=== PATIENT | female | born 1990 | race Caucasian/White ===

== ENCOUNTER 2016-04-17 23:52 | Emergency (ER) | payer SELFPAY ==
[~2016-04-17] VITALS: Ht 157.5 cm; Wt 47.7 kg
[2016-04-17 23:55] VITALS: BP 148/93; PULSE 156; RESP 26; O2SAT 90
--- NOTE | 2016-04-18 00:08 | ED.REPORT ---
HPI-Chest Pain Under 40 Date of Service Apr 18, 2016 ED Provider: Dr. Tello Roach MD A 25 year old female presents to the ED complaining of chest pain that began earlier this evening. Associated symptoms include nausea, vomiting and increased anxiety. Patient denies any previous cardiac history or any recent illness. Nursing Notes Stated Complaint: CP VOMITING Chief Complaint: Chest Pain-Non Cardiac Nature Nursing Notes Reviewed: Yes Allergies: Uncoded Allergies: PENICILLIN (Allergy, Severe, Anaphylaxis, 04/17/16) General Time Seen by MD: 00:07 Chief Complaint Chest pain Hx Obtained From: Patient Arrived By: Walk-in Sudden in Onset?: No Onset Occurred: 1 - 4 hours ago Symptom Duration: Since onset Location: : Chest left: Chest right Quality: Painful Radiation: : Does not radiate Migration/Movement: Reports: None Severity: Current: Mild Severity: Maximum: Mild Associated with: Reports: Vomiting Pertinent Negative: Pt denies other symptoms Recent Healthcare: No recent doctor visit, No recent hospitalization Risk Factors )( CAD Risk Stratification Risk factors reviewed )( PE Risk Stratification Risk factors reviewed Past Medical History Past Medical History None reported. Past Surgical History None reported. Smoking History Unknown if Ever Smoker Social History Other Social History: Good social support, Local resident Ambulatory Status Independent Review of Systems Constitutional: Denies: Chills, Fever Respiratory: Denies: Shortness of breath Cardiovascular: Reports: Chest pain GI: Reports: Nausea, Vomiting, Denies: Abdominal pain Neurologic: Denies: Change LOC Complete sys rev & neg: except as marked. Physical Exam Initial Vital Signs Vital Signs (First) Date Time Temp Pulse Resp B/P Pulse Ox O2 Delivery O2 Flow Rate FiO2 04/17/16 23:55 37.0 156 26 148/93 90 Room Air Initial VS: Reviewed Head / Eyes: Atraumatic, Normocephalic, PERRL Abdomen / GI: Soft, Non-tender, No guarding, No rebound, No distention Extremities: Vascular intact, Neuro intact, No swelling, No tenderness Skin: Warm, Dry, No cyanosis Neurologic: Alert, Oriented, Nonfocal Psychiatric: Mood/affect normal, Behavior normal, Normal thought content General/Constitutional: Awake, Alert, No acute distress Respiratory / Chest: Atraumatic, Breath sounds NL, Breath sounds = bilat Cardiovascular: Regular rhythm, Heart sounds NL Heart Rate / Rhythm: Positive: Tachycardia Interpretation & Diagnostics Lab Results Interpretation Result Diagram: 04/18/16 0030 04/18/16 0030 Test 04/18/16 00:20 04/18/16 00:30 04/18/16 02:45 Hold Urine Received (Received) White Blood Count 7.7th/mm3 (3.8-10.1) Red Blood Count 4.52mil/mm3 (3.90-5.20) Hemoglobin 15.2g/dL (12.0-15.6) Hematocrit 43.0% (35.0-46.0) Mean Corpuscular Volume 95.1fL (81-100) Mean Corpuscular Hemoglobin 33.6pg (27.0-35.0) Mean Corpuscular Hemoglobin Concent 35.3% (32.0-37.0) Red Cell Distribution Width 12.0% (12.3-15.4) Platelet Count 301bil/L (150-400) Neutrophils (%) (Auto) 51.4% (40-74) Lymphocytes (%) (Auto) 38.2% (14-46) Monocytes (%) (Auto) 9.3% (4-12) Eosinophils (%) (Auto) 0.6% (0-5) Basophils (%) (Auto) 0.4% (0-3) D-Dimer < 0.5mg/L (<0.50) Sodium Level 141mEq/L (134-144) Potassium Level 3.8mEq/L (3.5-5.2) Chloride Level 104mEq/L (97-108) Carbon Dioxide Level 15mmol/L (18-29) Blood Urea Nitrogen 14mg/dL (6-20) Creatinine 0.64mg/dL (0.57-1.00) Estimat Glomerular Filtration Rate 165mL/min (>59) Glucose Level 93mg/dL (60-99) Calcium Level 9.5mg/dL (8.5-10.1) Magnesium Level 2.0mg/dL (1.6-2.6) Total Bilirubin 0.2mg/dL (0.0-1.2) Aspartate Amino Transf (AST/SGOT) 19U/L (0-50) Alanine Aminotransferase (ALT/SGPT) 16U/L (0-32) Alkaline Phosphatase 71U/L (25-150) Total Protein 8.0g/dL (6.4-8.4) Albumin 4.8g/dL (3.4-5.0) HCG Beta Subunit 0.500mIU/mL Troponin T 0.010ug/L (0.0-0.011) Pulse Oximetry Interpretation Pulse Oximetry: Pulse Ox normal ECG Interpretation ECG Interpretation: Sinus tachycardia Rate 138 Prolonged QT interval Time: 00:11 Interpreted by: ED physician ECG Interpretation: Sinus Tachycardia Rate 100 Time: 02:32 Interpreted by: ED physician Repeat ECG: Repeat ECG unchanged Rhythm Strip Interpretation : Time: 01:18 Rhythm Strip Interpretation: Interpreted by me, Sinus tachycardia X-Ray Chest Interpretation Chest Xray Interpretation: IMPRESSION: No acute abnormalities Interpretation / Wet Read by: Wet read ED physician CT Chest Interpretation IMPRESSION: Normal CT angiogram of the chest Study type: CT pulm angiogram Interpretation / Wet Read by: Interpret - Radiologist (mi ) Re-Eval/Medical Decision Med Decision/Clinical Course 25-year-old female presents with sudden onset pleuritic chest pain. Associated signs include significant tachycardia. She has pulmonary emboli risk factors. She was of moderate probability. I could not rule her out with a d-dimer alone. Negative CT and showed negative d-dimer combine makes pulmonary emboli highly unlikely. NC was ruled out with serial troponins. She was treated with antiemetics and anti-fatty medicines and she looked and felt better. She is discharged home with her significant other and family members. Re-Evaluation/Progress #1: Time of Eval: 01:37 Patient Status: Condition improved Re-Evaluation/Progress Note: Patient is rechecked. She is resting comfortably. She is informed of her lab results, EKG results, X-ray results. Re-Evaluation/Progress #2: Time of Eval: 02:24 Patient Status: Condition improved Re-Evaluation/Progress Note: Patient is rechecked. She is informed of her CT results and diagnosis. All questions are addressed. She understands and agrees with the treatment plan. Counseled Regarding: Diagnosis, Lab results, Need for follow-up, When/why to return to ED Discharge & Departure Primary Impression: Chest pain Chest pain type: unspecified Qualified Code: R07.9 - Chest pain, unspecified Additional Impression: Vomiting Vomiting type: unspecified Vomiting Intractability: unspecified Nausea presence: unspecified Qualified Code: R11.10 - Vomiting, unspecified Disposition: Home Discharge Condition All VS Reviewed: Yes Condition: Stable Additional Instructions: Thank you for trusting us with your care this evening. The cause of your symptoms is uncertain but your results are reassuring that your symptoms are not likely due to blood clot or heart attack. Please take 1 Zofran every 8 hours as needed for nausea. Make sure to drink plenty of fluids for the next few days. Schedule a follow up appointment with your primary care provider in the next 2-3 days for a recheck. Please return to the emergency department for any new or worsening symptoms. Referrals: [facility] Scribe Attestation Portions of this note were transcribed by Sonali Goodman. I, Dr. Roach personally performed the history, physical exam and medical decision-making; I reviewed and confirmed the accuracy of the information in the transcribed note. Signed by: Anastacia Faria, 04/18/16 0300. Tello Roach DO Apr 18, 2016 00:07 SONALI GOODMAN Apr 18, 2016 01:21
[2016-04-18] MEDS ORDERED: 0.9% Sodium Chloride 1,000 ML IV SCH (00:35)
[2016-04-18] MEDS ORDERED: Ondansetron 2 mg/mL 2 mL Inj IVPUSH PRN (00:35)
[2016-04-18 00:43] LABS: BASOPHILS % (AUTO) 0.4 % (0-3); EOSINOPHILS % (AUTO) 0.6 % (0-5); MONOCYTES % (AUTO) 9.3 % (4-12); Mean Corpuscular Hemoglobin 33.6 pg (27.0-35.0); Mean Corpuscular Volume 95.1 fL (81-100); NEUTROPHILS % (AUTO) 51.4 % (40-74); Platelet Count 301 bil/L (150-400)
[2016-04-18 01:15] LABS: TROPONIN T 0.01 ug/L (0.0-0.011)
[2016-04-18] MEDS ORDERED: _Ondansetron ODT 4 mg Tablet PO PRN (02:25)
[2016-04-18 04:07] VITALS: BP 116/74; PULSE 104; RESP 16; O2SAT 98
[2016-04-18 04:08] VITALS: BP 116/74; PULSE 104; RESP 16; O2SAT 98
--- NOTE | 2016-04-18 09:18 | DRSVH ---
PROCEDURE: X-RAY CHEST ONE VIEW, PORTABLE ([id number]) INDICATIONS: CHEST PAIN TECHNIQUE: One view of the chest was acquired. COMPARISON: None. FINDINGS: Surgical changes and devices: None. Lungs and pleura: No pleural effusions or pneumothorax. Lungs are clear. Mediastinum: Mediastinal contours appear normal. Heart size is normal. Bones and chest wall: No suspicious bony lesions. Overlying soft tissues appear unremarkable. IMPRESSION: No acute cardiopulmonary disease. Dictated by: Karan Stanley [facility] Interpreted: Reshma Aden MD on 04/18/2016 at 9:17 Transcribed by: TIMA on 04/18/2016 at 9:18 Approved by: Reshma Aden MD, PhD on 04/18/2016 at 10:53
--- NOTE | 2016-04-18 10:31 | DRSVH ---
PROCEDURE: CT ANGIO CHEST PULMONARY EMBOLISM ([id number]) INDICATIONS: chest pain, shortness of breath, tachycardia TECHNIQUE: After the administration of intravenous contrast, 2 mm thick sections acquired from the pulmonary api cisco to the posterior costophrenic angles. 3-dimensional maximum intensity projection (MIP) coronal a nd sagittal reformats were then acquired through the thorax. For radiation dose reduction, the follo wing was used: automated exposure control, adjustment of mA and/or kV according to patient size. COMPARISON: None. FINDINGS: Image quality: Excellent. Pulmonary arteries: Pulmonary arteries are normal in size, and demonstrate no intraluminal filling d efects to suggest central pulmonary embolism. Lungs and pleura: There is a 3 mm pulmonary nodule in the right middle lobe (series 5 image 34). A c ouple of nodules are seen in the right lower lobe measuring 4 mm 3 mm, respectively (series 5 image 3 3 and 48) Lungs are otherwise clear. No pleural effusions or pneumothorax. Central and peripheral a irways are patent. Mediastinum: Heart size is normal, without pericardial effusion. No mediastinal or hilar adenopathy . Thoracic aorta is normal in caliber and enhancement. Esophagus is normal in caliber, without hiat al hernia. Bones and chest wall: No suspicious bony lesions. Ribs and thoracic spine appear intact throughout. Thyroid gland is normal. No axillary or supraclavicular adenopathy. Abdomen: Visualized upper abdominal solid organs appear normal in the early arterial phase of enhanc ement. IMPRESSION: 1. No evidence for placental pulmo embolism. 2. Small right nodules. Recommend followup (see below for recommendation). Note: Please note small nodules in right lung not mentioned in the preliminary report. Fleischner Society criteria for SOLID lung nodule followup. Nodule size (mm)Low-risk patientHigh-risk [id number] follow-up neededFollow-up at 12 mo; if no bustos e, no further follow-up>[id number] CT at 12 mo; if no change, no further follow-up needed.Initial f ollow-up CT at 6-12 mo, then 18-24 mo if no change. >6-8Initial follow-up CT at 6-12 mo, then 18-24 mo if no change. Initial follow-up CT at 3-6 mo, then 9-12 mo and 24 mo if no change. >8Follow-up CT at 3, 9, 24 mo. Or PET and/or biopsy.Same as for low-risk pts. Dictated by: Renny Thomas M.D. on 04/18/2016 at 10:21 Approved by: Renny Thomas M.D. on 04/18/2016 at 10:29
== END 2016-04-18 04:09 | disposition home or self-care (01) ==
LOC: SED 23:52
DX: R07.9 Chest pain, unspecified (principal); R11.10 Vomiting, unspecified
CPT/HCPCS: 36415; 71010; 71275; 80053; 82948; 83735; 84484; 84702; 85025; 85379; 93005; 96361; 96374; 99285; J2060; J7030; Q9967